=== PATIENT | female | born 2000 | race African-American/Black ===

== ENCOUNTER 2021-05-12 14:38 | Emergency (ER) | payer OTHER, SELFPAY ==
--- NOTE | ~2021-05-12 | XR_ITS ---
EXAMINATION: XR chest 2V DATE: 05/12/2021 15:25 INDICATION: Left-sided chest pain TECHNIQUE: PA and lateral views of the chest are obtained. COMPARISON: None available FINDINGS: There are patchy bilateral airspace opacities. There is no pleural effusion or pneumothorax . The cardiomediastinal silhouette is normal. The visualized bones and soft tissues are unremarkable. IMPRESSION: 1. Patchy bilateral airspace opacities, consistent with atelectasis versus pneumonia. Reviewed, dictated and finalized at location B. IMPRESSION: 1. Patchy bilateral airspace opacities, consistent with atelectasis versus pneu monia.
[2021-05-12 15:09] VITALS: BP 128/67; PULSE 85; RESP 16; TEMP 36.4; O2SAT 100
--- NOTE | 2021-05-12 15:13 | ECG_ITS ---
Measurements Intervals [place] Rate: 83 P: 44 SD: 149 QRS: 71 QRSD: 93 T: -2 QT: 350 QTc: 412 Interpretive Statements SINUS RHYTHM BORDERLINE T WAVE ABNORMALITY- ANT/INF LEADS BORDERLINE ECG Electronically Signed On 05-12-2021 15:39:07 CDT by Nakul Parrish D.O.
--- NOTE | 2021-05-12 15:29 | ED.GENADULT ---
HPI - General Adult General Chief complaint: Unspecified Stated complaint: Cough/ chest pain Time Seen by Provider: 05/12/21 15:29 Source: patient Mode of arrival: ambulatory Limitations: no limitations History of Present Illness HPI narrative: Patient is a 21-year-old previously healthy female presenting for evaluation of chest pain. Patient reports right-sided chest pain which is worsened when she takes a deep breath. Also reports pain with movement. She denies any recent heavy bending or lifting. Reports mild shortness of breath. Denies fever, chills, reports rhinorrhea and congestion. Patient reports recent travel to [place] by airplane approximately 1 month ago. She is not vaccinated for Covid. No recent sick contacts. She reports dry cough. She denies leg swelling or calf pain. No history of coagulopathy. Patient denies cigarette use. She does smoke marijuana occasionally. Denies other drug use. Patient denies abdominal pain or epigastric pain. No nausea or vomiting. Related Data Allergies Allergy/AdvReac Type Severity Reaction Status Date / Time No Known Allergies Allergy Verified 05/12/21 15:43 Review of Systems Review of Systems: CONSTITUTIONAL: Denies fever, chills, or sweats. EYES: Denies visual changes, redness, or discharge. ENT: Reports rhinorrhea, congestion, denies sore throat CARDIOVASCULAR: Reports chest pain without palpitations, or edema. RESPIRATORY: Reports cough without shortness of breath GASTROINTESTINAL: Denies abdominal pain, nausea, vomiting, or diarrhea. GENITOURINARY: Denies dysuria or hematuria. SKIN: Denies rash or itching. MUSCULOSKELETAL: Denies back pain, joint pain, or myalgia. NEUROLOGIC: Denies headache, numbness, or weakness. [facility] Social History Social History (Updated 05/12/21 @ 16:07 by Gaby Wells MD) Smoking status: Never smoker Alcohol intake: never Substance use: current Substance use type: marijuana Occupation/Education: student Gender identity (if verbalized by the patient): Female Exam Narrative: GENERAL: Awake, alert, conversant HEAD: Normocephalic, atraumatic. EYES: PERRLA and EOMI. ENT: Nares clear, no rhinorrhea or epistaxis. Mucous membranes moist. NECK: Supple. CHEST: No respiratory distress, breathing even and non labored, positive right-sided chest wall tenderness, no crepitus or ecchymosis, no wheezing or crackles HEART: Regular rate, sinus rhythm ABDOMEN:Non distended, non tender EXTREMITIES: Normal range of motion. No edema. SKIN: Warm, dry, no rash. NEURO:No focal deficits. Alert and oriented x3 Course Vital Signs Vital signs: Vital Signs Temperature 36.4 C 05/12/21 15:09 Pulse Rate 85 05/12/21 15:09 Respiratory Rate 16 05/12/21 15:09 Blood Pressure 128/67 05/12/21 15:09 Pulse Oximetry 100 05/12/21 15:09 Temperature 36.4 C 05/12/21 15:09 Pulse Rate 85 05/12/21 15:09 Respiratory Rate 16 05/12/21 15:09 Blood Pressure 128/67 05/12/21 15:09 Pulse Oximetry 100 05/12/21 15:09 Medical Decision Making Differential Diagnosis Differential Diagnosis: Patient presenting for evaluation of cough, chest pain. At the time of assessment, ABCs are intact and vital signs are stable. Patient is not tachycardic or hypoxic. She does have rhinorrhea, chest pain is reproducible on exam, more consistent with musculoskeletal etiology. Patient was given Toradol for pain. Patient's EKG and labs are without significant high risk changes. She does have some nonspecific ST segment changes. Troponin is not elevated. D-dimer is not elevated making PE unlikely. Vascular etiology seems less likely given symptoms. Cardiac risk factors reviewed. Patient is felt low risk for ACS and reasonable for further risk stratification testing as an outpatient. Pain was not sudden or maximal or onset without tearing or ripping quality. No other signs or symptoms to suggest aortic dissection. Patient does have symptoms to be
[2021-05-12] MEDS: Please add drug allergy info to patient profile. XX (15:44)
[2021-05-12] MEDS: KETOROLAC 15 MG/ML VIAL (*BKC) IV PUSH (15:44)
[2021-05-12 15:58] LABS: Basophils Percent Auto 0.4 % (0.2-1.2); Eosinophils Absolute Auto 0.4 K/mm3 (0-0.3); Eosinophils Percent Auto 5.2 % (0-4.4); Hematocrit 39.8 % (37.0-47.0); Hemoglobin 13.5 g/dL (12.0-15.0); Immature Granulocyte Absolute 0.03 K/mm3 (0.00-0.031); Immature Granulocyte Percent A 0.4 % (0-0.5); Lymphocytes Absolute Auto 2.62 K/mm3 (0.9-3.2); Lymphocytes Percent Auto 33.9 % (18.3-44.2); Mean Corpuscular HGB Conc 33.9 g/dl (32-36); Mean Corpuscular Hemoglobin 29.5 pg (26-34); Mean Corpuscular Volume 87.1 fl (80-100); Mean Platelet Volume 10.7 fl (7.4-10.4); Monocytes Absolute Auto 0.8 K/mm3 (0.1-0.6); Neutrophils Absolute Auto 3.9 K/mm3 (1.3-6.7); Neutrophils Percent Auto 50.1 % (45.5-73.1); Platelet Count Result 275 k/mm3 (150-375); Red Blood Count 4.57 M/mm3 (4.2-5.4); Red Cell Distribution Width 12.5 % (11.5-14.5); White Blood Count 7.7 K/mm3 (4.5-10.0)
[2021-05-12 16:14] LABS: D Dimer 0.32 ug/mL (<0.48)
[2021-05-12 16:34] LABS: Anion Gap 6 mmol/L (8-16); Blood Urea Nitrogen 8 mg/dL (7-17); Calcium 10.2 mg/dL (8.4-10.2); Carbon Dioxide 29 mmol/L (22-30); Chloride 104 mmol/L (98-107); Estimated CRCL calculation 137 ml/min; Estimated Glomerular Filt Rate > 60; Glucose 92 mg/dL (65-110); Potassium 4.2 mmol/L (3.4-5.0); Sodium 139 mmol/L (137-145)
[2021-05-12 16:45] LABS: Troponin I < 0.012 ng/mL (0.000-0.034)
[2021-05-12 17:24] VITALS: BP 124/87; PULSE 77; RESP 14; TEMP 37.1; O2SAT 100
[2021-05-13 17:30] LABS: SARS-CoV-2 RNA PCR Negative
== END 2021-05-12 17:25 | disposition home or self-care (01) ==
PROVIDERS: Emergency Provider Emergency Medicine
DX: Z20.822 Contact with and (suspected) exposure to COVID-19 (principal); J18.9 Pneumonia, unspecified organism; R07.89 Other chest pain
CPT/HCPCS: 36415; 71046; 80048; 84484; 85025; 85380; 93005; 96374; 99284; C9803; J1885; U0003; U0005